=== PATIENT | female | born 1995 | race African-American/Black ===

== ENCOUNTER 2021-10-03 16:28 | Emergency (ER) | payer MEDICAID ==
[~2021-10-03] VITALS: Ht 139.7 cm; Wt 51.3 kg
[~2021-10-03 16:28] MED LIST: KEP500 PO
[2021-10-03 16:44] VITALS: BP 129/75
[2021-10-03] MEDS: IBUPROFEN 600 MG TAB PO ONE (17:34)
[2021-10-03] MEDS ORDERED: NAPR-54 PO (18:14)
[2021-10-03 18:34] VITALS: BP 119/71
== END 2021-10-03 18:34 | disposition home or self-care (01) ==
LOC: MED 16:28
DX: M25.571 Pain in right ankle and joints of right foot (principal); J45.909 Unspecified asthma, uncomplicated; Z86.69 Personal history of other diseases of the nervous system and sense organs; Z79.1 Long term (current) use of non-steroidal anti-inflammatories (NSAID); Z79.899 Other long term (current) drug therapy; Z91.018 Allergy to other foods; Z91.030 Bee allergy status; Z88.8 Allergy status to other drugs, medicaments and biological substances
CPT/HCPCS: 73610; 73630; 99284